=== PATIENT | male | born 1980 | race Caucasian/White ===

== ENCOUNTER → 2018-09-07 | Outpatient (CLI) | payer SELFPAY ==
--- NOTE | 2018-09-07 14:38 | Diagnostic Imaging Report ---
PROCEDURE: CT sinuses without contrast TECHNIQUE: Multiple contiguous axial images were obtained through the sinuses without the use of intravenous contrast. Coronal and sagittal reformations were then performed. Auto Exposure Controls were utilized during the CT exam to meet ALARA standards for radiation dose reduction. INDICATION: Chronic frontal sinusitis. COMPARISON: None. FINDINGS: The paranasal sinuses are clear. No mucosal thickening or air-fluid levels. The ostiomeatal units and frontal recesses are patent. Mild leftward bowing of the nasal septum. No large neal bullosa. The mastoids and middle ears are clear. Normal alignment of the temporomandibular joints. Skull base is intact. IMPRESSION: No CT evidence of acute or chronic sinusitis. Dictated by: Dictated on workstation # [id number]
== END ==
LOC: RAD 13:05
PROVIDERS: ATTEND Pediatrics
DX: J32.1 Chronic frontal sinusitis (principal)
CPT/HCPCS: 70486